=== PATIENT | female | born 1985 | race Two or more races ===

== ENCOUNTER 2018-12-15 17:00 | Emergency (ER) | payer SELFPAY ==
[~2018-12-15] VITALS: Ht 154.9 cm; Wt 79.8 kg
[2018-12-15 17:06] VITALS: BP 135/86
[2018-12-15 18:03] LABS: Hematocrit 38.2 % (36.0-46.0); Mean Corpuscular Hemoglobin 31.6 pg (28.0-32.0); Mean Corpuscular Hgb Conc. 34.2 g/dL (32.0-36.0); Mean Corpuscular Volume 92.5 fL (80.0-100.0); Platelet Count (auto) 245 10^3/uL (140-450); Red Blood Cells 4.13 10^6/uL (4.0-5.20); Red Cell Distribution Width 12.4 % (11.8-14.3); White Blood Cell 6.9 10^3/uL (4.4-10.8)
[2018-12-15 18:06] LABS: Band Neutrophils % (manual) 0; Basophils % (manual) 0 (0.0-2.0); Blast Cells 0; Metamyelocytes % 0; Myelocytes % 0; Promyelocytes % 0; Reactive Lymphocytes 0
[2018-12-15 18:22] LABS: Albumin 3.6 g/dL (3.4-5.0); BUN/Creatinine Ratio 10.1; Calcium 8.8 mg/dL (8.5-10.1); Potassium 3.8 mmol/L (3.5-5.1)
[2018-12-15 18:24] LABS: Bilirubin, Total 0.3 mg/dL (0.2-1.0); Total Protein 7.4 g/dL (6.4-8.2)
[2018-12-15 18:31] LABS: Urine Bacteria FEW /hpf (None Seen); Urine Blood 2+ /uL (Negative); Urine Specific Gravity 1.014 (1.001-1.035); Urine WBC 2 /hpf (0 - 5)
[2018-12-15 19:15] LABS: Eosinophils % (manual) 16 (0-7); Lymphocytes % (manual) 22 (10.0-50.0); Monocytes % (manual) 3 (0-12)
== END 2018-12-15 21:45 | disposition left against medical advice (07) ==
LOC: ER 17:10
DX: R10.9 Unspecified abdominal pain (principal); R11.0 Nausea; Z53.21 Procedure and treatment not carried out due to patient leaving prior to being seen by health care provider
CPT/HCPCS: 36415; 80053; 81001; 85007; 85027